=== PATIENT | female | born 1955 | race Caucasian/White ===

== ENCOUNTER → 2022-06-16 | Outpatient (CLI) | payer OTHER, SELFPAY ==
--- NOTE | 2022-06-16 | EMB_PTH ---
PATIENT: SARAHY PINA LOC: [facility] U#:[id number] AGE/SX: 67/F ROOM: RE06/16/[address]: Dr. Kaylan Corral MD : 1955 BED: DIS: 06/16/2022 SPEC #: [id number] RECD: 06/16/22 16:38 STATUS: ALEXANDRE MERAZ #: [id number] MOSHE: 06/16/22 00:[address]: Kaylan Corral DEPT: SURGICAL PATHOLOGY RECD BY: Dalia Arreguin ENTERED: 06/17/22 13:06 SP TYPE: ENDOM BX/C SAJI DR: Dr. Rosa Elena Biggs MD Tissues: Endometrium, NOS Procedures: Surgery Specimen Level IV HEADER OPERATION: Endometrial biopsy PRE-OP DIAGNOSIS: Postmenopausal bleeding TISSUE SUBMITTED: Endometrial biopsy MICROSCOPIC DIAGNOSIS Endometrium, biopsy: Fragment of benign lower uterine endometrium/endocervix. Focal vascular congestion. AM:claude 06/20/2022 MICROSCOPIC DESCRIPTION Slides are reviewed. GROSS DESCRIPTION Received is one container labeled with the patient's name and not further designated. The specimen consists of multiple irregular fragments of hebert mucoid tissue that in aggregate measure 0.3 x 0.3 x 0.1 cm. The specimen is totally submitted in one cassette. / SJ:claude 06/17/2022 TC:5 CPT: 13242
[2022-06-28 16:56] LABS: HPV APTIMA, High Risk Negative (Negative)
== END | disposition home or self-care (01) ==
PROVIDERS: PCP Family Medicine; Visit Provider Obstetrics & Gynecology
DX: N95.0 Postmenopausal bleeding (principal)
CPT/HCPCS: 87624; 88175; 88305; G0145

== ENCOUNTER 2022-08-16 07:20 | Day surgery (SDC) | payer OTHER, SELFPAY ==
[2022-08-16 08:20] LABS: Absolute Lymphocyte Count 2.32 X10^3/uL (0.83-4.51); Absolute Neutrophil Count 7.2 X10^3/uL (2.0-7.7); Basophil# 0.05 X10^3/uL; Basophil% 0.5 % (0-1); Eosinophil# 0.49 X10^3/uL; Eosinophils% 4.5 % (0-5); Hematocrit 39.9 % (37-47); Hemoglobin 12.5 g/dL (12.0-15.0); Lymphocyte # 2.32 X10^3/ul (0.83-4.51); Lymphocyte % 21.2 % (19-41); Mean Corp Hgb Conc 31.3 g/dL (32-36); Mean Corpuscular Hgb 26.3 pg (27.0-32.0); Mean Corpuscular Volume 83.8 fL (81-99); Mean Platelet Vol. 10.9 fl (6.2-12.0); Monocyte# 0.75 X10^3/uL; Monocyte% 6.9 % (0-10); NRBC Flagged by Analyzer 0 % (0-5); Neutrophil # 7.23 X10^3/uL (2.7-7.7); Neutrophil % 66.1 % (47-70); Platelet Count 218 K/mm3 (150-450); RBC Distribution Width SD 48.7 fl (35.1-43.9); Red Blood Count 4.76 M/mm3 (4.2-5.4); White Blood Count 10.9 K/mm3 (4.4-11.0)
[2022-08-16 08:22] VITALS: BP 129/75; PULSE 72; RESP 18; TEMP 36.7; O2SAT 97; BMI 41.1
[2022-08-16] MEDS: Lactated Ringers 1,000 ML 15 ML IV (08:26)
--- NOTE | 2022-08-16 08:37 | HP.PCM_ITS ---
History and Physical Date of Admission: 08/16/22 [facility] [address] [place] [address] OFFICE VISIT Date of Service:? 07/29/22 MR#: [id number] Acct: [id number] Name:SARAHY FELIX Rep #: [id number] : 1955 ? ? Provider: Dr. Kaylan Corral MD Age/Sex:? 67/F ? ? [place] [facility] [place]: [place] Intake Vital Signs ? 07/29/2310:06 07/29/2310:06 Height 5 ft 2 in 5 ft 2 in Weight: ? 219 lb BMI ? 40.0 BP ? 152/90 H Intake Visit Reasons:?f/u from EMB and u/s Chief Complaint: follow up from EMB and u/s [employer]illing [employer] Operator Required: No Is patient in pain?: No Allergies No Known Allergies Allergy (Unverified 07/29/22 11:07) Medications amlodipine 10 mg tablet 10 mg PO DAILY 06/16/22 [History Confirmed 07/29/22] cholecalciferol (vitamin D3) 25 mcg (1,000 unit) capsule 25 mcg PO DAILY 06/16/22 [History Confirmed 07/29/22] citalopram 20 mg tablet (Celexa) 20 mg PO DAILY 06/16/22 [History Confirmed 07/29/22] cyanocobalamin (vitamin B-12) 1,000 mcg capsule 1,000 mcg PO QMONTH 06/16/22 [History Confirmed 07/29/22] Is last menstrual period known: No Post menopausal: Yes Patient : No : No [facility] Medical History? Anxiety and depression Hypertension Vitamin B deficiency Vitamin D deficiency Surgical History? S/P knee surgery Family History? Father Heart disease LymphomaMother HypertensionSister?? CancerBrother Heart base tumorBrother Cancer Social History? Smoking Status:? Never smoker alcohol intake:? never substance use type:? does not use caffeine:? Yes seatbelt use:? always do you feel safe at home:? Yes additional social history:? 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 HPI f/u from [facility] and u/s Details: SARAHY PINA is a 67 year old who presents for follow up of postmenopausal bleeding.? she had a normal biopsy but the lining shows 12 mm.? she hasn't had consistent bleeding since then. she had two episodes previously that happened and then has been doing better since. she denies any pelvic pain or fevers, no abnormal discharge since. Female Reproductive History Menopausal Symptoms: No night sweats History ? ? ? 7 ? Elective abortions ? Hx Para ? ? ? 5 ? Spontaneous abortions ? ? ? 2 Hx # Term Pregnancies ? Ectopic pregnancies ? Hx # Pregnancies ? Multiple births ? # of living children ? ? ? 5 Past Pregnancies Del. Date Name GA/Weeks Outcome Route Bth Weight Infant Gen Labor Lgth Anesthesia Del Locatn Provider FOB Unknown x5 ? ROS Const Constitutional: Denies fatigue, night sweats, weight gain or weight loss ENT ENT: Reports system reviewed and no additional complaints, except as documented Cardio Card: Denies chest pain Resp Resp: Denies cough or dyspnea GI GI: Reports as per HPI; Denies abdominal pain, constipation, nausea or vomiting : Reports urinary incontinence; Denies nipple discharge, urinary frequency, urinary hesitancy, urinary urgency, vaginal discharge, vaginal dryness, vaginal odor or vaginal pruritus Musc Musc: Denies arthralgias, back pain or muscle weakness Skin Skin/Breast: Denies alopecia, change in hair, dry skin, breast mass, breast pain, breast skin changes or nipple discharge Neuro Neuro: Reports system reviewed and no additional complaints, except as documented Psych Psych: Reports system reviewed and no additional complaints, except as documented Endo Endo: Denies cold intolerance, excessive sweating, heat intolerance or polydipsia Sudeep/Lymph Hematologic/Lymphatic: Denies easy bleeding, Denies easy bruising and Denies lymphadenopathy Exam Const General: cooperative, healthy appearing, comfortable, no acute distress and well developed Orientation: alert [facility] Head: normal to inspection and normocephalic Ears: hearing grossly normal bilaterally and external ears normal Nose: external nose normal and nares normal Face and sinus: normal facial exam Neck Neck: normal visual inspection and no lymphadenopathy Thyroid: thyroid normal Chest Chest palpation & inspection: normal inspection of the chest Resp Effort & Inspection: normal respiratory effort Auscultation: clear to auscultation bilaterally Cardio Rate: regular rate Rhythm: regular rhythm Heart Sounds: S1 normal and S2 normal GI Inspection: normal to inspection and non-distended Palpation: soft and no hepatosplenomegaly Musc Other: gross motor intact no deficits, full bilateral strength Skin General: no rashes or lesions noted Neuro General: patient alert, patient awake, moves all extremities and no focal motor deficits Motor: muscle tone normal throughout Extrem General: normal to inspection and no pedal edema Psych Appearance: grossly normal Mental Status: mental status grossly normal Affect: normal affect Speech and Movement: speech and movement normal Coding Level of Care Code Off vis,est,level 4 Diagnoses Postmenopausal bleeding? N95.0 Assessment and Plan Assessment and Plan (1) Postmenopausal bleeding: ?Status:?Acute ?Comment: 12 mm lining, nl emb but recommend d and c hysteroscopy for full evaluation. Plan After discussing the patient's diagnosis and treatment plan options, patient wishes to proceed with surgical management.? I have discussed with the patient the risks, benefits, and alternatives of the procedure which include but are not limited to risks of anesthesia, bleeding, infection, possible damage to bowel, bladder, or surrounding vasculature which could lead to additional surgery to evaluate any complications.? Patient agrees to procedure and wishes to proceed.? ACOG/uptodate references given for additional information regarding procedure.? UPDATE- I have seen the patient and performed any clinically relevant updates to the history and physical exam. Kaylan Corral MD
--- NOTE | 2022-08-16 08:37 | OP.PCM_ITS ---
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 A weighted speculum was placed in the vagina and the anterior lip of the cervix was grasped with a single-tooth tenaculum. A paracervical block was placed with 1% lidocaine. Cervix was progressively dilated to allow passage of a 5 mm hysteroscope. The lining was fully visualized and noted to have a large endometrial polyp filling the whole cavity atrophic lining surrounding. Uterine sounded to 9 cm cm. Using the symphion device, the endometrial polyp was progressively removed without complications. Direct visual curettage was pe rformed using the device , and all specimens were sent to pathology. All instruments were removed from the vagina and excellent hemostasis was noted. Patient was awoken and taken to recovery in stable condition. Grafts/Implants Used: none Complications none Admit VTE Documentation VTE Present on Admission: No VTE Mechan Device Prophylaxis: SCD's Multi Select Codes Urinary/Genital Urinary/Genital CPT Codes: 60076 Hysteroscopy,EMC, Polypectomy
--- NOTE | 2022-08-16 09:00 | EMB_PTH ---
PATIENT: SARAHY PINA LOC: [facility] [place] U#:[id number] AGE/SX: 67/F ROOM: RE08/16/[address]: Dr. Kaylan Corral MD : 1955 BED: DIS: 08/16/2022 SPEC #: [id number] RECD: 08/16/22 10:38 STATUS: ALEXANDRE MERAZ #: [id number] MOSHE: 08/16/22 09:[address]: Kaylan Corral DEPT: SURGICAL PATHOLOGY RECD BY: Dalia Arreguin ENTERED: 08/16/22 11:10 SP TYPE: ENDOM BX/C SAJI DR: Dr. Rosa Elena Biggs MD Tissues: Endometrium, NOS Procedures: Surgery Specimen Level IV HEADER OPERATION: Hysteroscopy, D & C Symphion PRE-OP DIAGNOSIS: Postmenopausal bleeding TISSUE SUBMITTED: Endometrial polyp and curettings MICROSCOPIC DIAGNOSIS Endometrial polyp and curettings: Simple endometrial hyperplasia without atypia. SJ:claude 08/17/2022 MICROSCOPIC DESCRIPTION Slides are reviewed. GROSS DESCRIPTION Received in fixative is one container labeled with the patient's name and designated endometrial polyp and curettings. The specimen consists of multiple irregular fragments of pink-hebert soft tissue that in aggregate measure 7.0 x 5.0 x 0.3 cm. The specimen is totally submitted in three cassettes. / AM:claude 08/16/2022 TC:5 CPT: 88763
[2022-08-16] MEDS: Lidocaine 1% (20 ml mdv) 20 ML Vial (09:16)
--- NOTE | 2022-08-16 09:32 | DCINST_ITS ---
Discharge Instructions Procedure D&C Diet Discharge Diet: No restrictions Activity Discharge Activity: Return to Normal Activity, May Shower and May Take a Tub Bath (after 1 week) May resume sexual activity in: 1-2 weeks Weight Bearing Status: Weight bearing as tolerated Lifting Restrictions: none Dressing / Incision Call your doctor if you observe: Fever of 101 or Higher, Using more than 1 pad per hour, Shortness of breath and Uncontrolled pain Follow Up Care Please Follow Up With: Kaylan Corral MD When: Call [phone] to schedule appointment. Test Results: Test results from this visit will be discussed in further detail at your follow- up appointment, if applicable. Discharge Plan Admission Attending Provider: Kaylan Corral Primary Care Provider: Rosa Elena Biggs Discharge Orders/Prescriptions Prescriptions: No Action amlodipine 10 mg tablet 10 mg PO DAILY citalopram [Celexa] 20 mg tablet 20 mg PO DAILY cyanocobalamin (vitamin B-12) 1,000 mcg capsule 1,000 mcg PO QMONTH cholecalciferol (vitamin D3) 25 mcg (1,000 unit) capsule 25 mcg PO DAILY Referrals / Follow Up: Rosa Elena Biggs MD [Primary Care Provider] - Disposition Disposition (needs filled in before D/C Order can be placed): Home, Self Care
[2022-08-16 09:39] VITALS: BP 127/79; BP 129/75; PULSE 79; RESP 16; TEMP 36.8; O2SAT 96
[2022-08-16 09:45] VITALS: BP 124/83; BP 129/75; PULSE 76; RESP 16; O2SAT 95
[2022-08-16 09:50] VITALS: BP 124/83; BP 129/75; PULSE 76; RESP 16; O2SAT 96
[2022-08-16 09:54] VITALS: BP 124/81; BP 129/75; PULSE 74; RESP 16; TEMP 37.5; O2SAT 95
[2022-08-16 10:21] VITALS: BP 129/75
--- NOTE | 2022-08-16 11:32 | SUR.PHASEII ---
patient left discharge instructions in room when she left. called on cell phone, he had me read them to him over the phone and then instructed me to throw them away. instructed him that if they changed their mind and want a copy of the instructions to call back and let us know and we would be happy to mail them to him.
== END 2022-08-16 10:24 | disposition home or self-care (01) ==
LOC: SDC 07:24 → AC 07:25
PROVIDERS: PCP Family Medicine; Referring Provider Obstetrics & Gynecology; Visit Provider Obstetrics & Gynecology
PROC: 0UB98ZZ Excision of Uterus, Via Natural or Artificial Opening Endoscopic (ICD-10-PCS; CPT 58558; principal; 2022-08-16 08:45)
DX: N85.01 Benign endometrial hyperplasia (principal); N95.0 Postmenopausal bleeding; F41.9 Anxiety disorder, unspecified; F32.A Depression, unspecified; E55.9 Vitamin D deficiency, unspecified; I10 Essential (primary) hypertension; Z79.899 Other long term (current) drug therapy
CPT/HCPCS: 58558; 00952; 85025; 86850; 86900; 86901; 88305; 93005; J7120; J2405

== ENCOUNTER → 2023-05-04 | Outpatient (CLI) | payer OTHER, SELFPAY ==
--- NOTE | 2023-05-04 | EMB_PTH ---
PATIENT: SARAHY PINA LOC: [facility] U#:[id number] AGE/SX: 68/F ROOM: RE05/04/[address]: Dr. Kaylan Corral MD : 1955 BED: DIS: 05/04/2023 SPEC #: [id number] RECD: 05/04/23 16:57 STATUS: ALEXANDRE MERAZ #: [id number] MOSHE: 05/04/23 00:[address]: Kaylan Corral DEPT: SURGICAL PATHOLOGY RECD BY: Myrna Livingston ENTERED: 05/05/23 08:25 SP TYPE: ENDOM BX/C SAJI DR: Dr. Rosa Elena Biggs MD Tissues: Endometrium, NOS Procedures: Surgery Specimen Level IV HEADER OPERATION: Endometrial biopsy PRE-OP DIAGNOSIS: Abnormal uterine bleeding TISSUE SUBMITTED: Endometrial lining tissue MICROSCOPIC DIAGNOSIS Endometrial biopsy: Consistent with exogenous hormone effects. Negative for hyperplasia. SJ: 05/08/2023 COMMENT Please make reference to previous specimen [id number], endometrial polyp and curetting with diagnosis of simple endometrial hyperplasia without atypia. Correlation with clinical findings and appropriate follow up are necessary. MICROSCOPIC DESCRIPTION Slides are reviewed. GROSS DESCRIPTION Received is one container labeled with the patient's name and not further designated. The specimen consists of multiple fragments of hemorrhagic mucoid tissue that in aggregate measure 2.5 x 1.0 x 0.2 cm. The specimen is totally submitted in one cassette. / SJ:rg 05/05/2023 TC:5 CPT: 10967
== END | disposition home or self-care (01) ==
PROVIDERS: PCP Family Medicine; Visit Provider Obstetrics & Gynecology
DX: N93.9 Abnormal uterine and vaginal bleeding, unspecified (principal)
CPT/HCPCS: 88305